=== PATIENT | female | born 1945 | race Caucasian/White ===

== ENCOUNTER 2022-04-27 08:29 | Outpatient (REF) | payer MEDICARE, SELFPAY ==
--- NOTE | ~2022-04-27 | XR_ITS ---
EXAMINATION: XR PELVIS CLINICAL INFORMATION: Hip pain COMPARISON: None TECHNIQUE: AP view of the pelvis. FINDINGS: There is there is reduction in bilateral hip joint space with mild periarticular spurring. No bony erosive changes, loose bodies, fracture or dislocation seen. There is fracture without displacement along left anterior inferior pubic ramus. No additional fracture seen. The soft tissues are normal. The SI joints are symmetrical and normal. XR/XR pelvis 1-2V IMPRESSION: 1. Nondisplaced fracture left anterior inferior pubic ramus. Likely acute. 2. Mild degenerative changes bilateral hip joints. No visible acute fracture or dislocation seen.
== END 2022-04-27 08:30 | disposition home or self-care (01) ==
LOC: HO.HOSX 08:29
PROVIDERS: Visit Provider Physician Assistant
DX: S32.592A Other specified fracture of left pubis, initial encounter for closed fracture (principal)
CPT/HCPCS: 72170; 99202